=== PATIENT | female | born 1975 | race Asian ===

== ENCOUNTER 2019-06-07 01:39 | Emergency (ER) | payer OTHER ==
[~2019-06-07] VITALS: Ht 157.5 cm; Wt 61.4 kg
[2019-06-07 02:24] LABS: CALCIUM 8.4 mg/dL (8.5-10.1); CARBON DIOXIDE 25.1 mmol/L (21-32); CHLORIDE SERUM 99 mmol/L (98-107); CREATININE SERUM 0.8 mg/dL (0.6-1.0); GFR1 > 60 mL/min; GLUCOSE SERUM 174 mg/dL (74-106); POTASSIUM SERUM 3.7 mmol/L (3.5-5.1); SODIUM SERUM 136 mmol/L (136-145)
[2019-06-07 02:28] LABS: ALKALINE PHOSPHATASE 80 U/L (46-116); ALT/SGPT 9 U/L (14-59); AST/SGOT 6 U/L (15-37); BILIRUBIN TOTAL 0.83 mg/dL (0.20-1.00); LIPASE 45 IU/L (73-393); TOTAL PROTEIN, SERUM 8.2 g/dL (6.4-8.2)
[2019-06-07 02:29] LABS: ALBUMIN 3.1 g/dL (3.4-5.0)
[2019-06-07 02:59] LABS: PLATELET COUNT 414 x10^3mcL (130-400); RED CELL DISTRIBUTION WIDTH 16.2 % (11.5-14.5)
[2019-06-07 03:11] LABS: BAND NEUTROPHIL 4 % (0-10); MONOCYTE 3 % (0-7); SEGMENTED NEUTROPHILS 86 % (37-75)
[2019-06-07 03:12] LABS: PLATELET MORPHOLOGY PLATELETS NORMAL; ovalocyte/elliptocyte 2+; rbc morphology (normal/abnorm) ABNORMAL (NORMAL); tear drop cell (dacryocyte) 1+
[2019-06-07 08:45] VITALS: BP 117/79
== END 2019-06-07 08:45 | disposition home or self-care (01) ==
LOC: ED 01:39
DX: T62.8X1A Toxic effect of other specified noxious substances eaten as food, accidental (unintentional), initial encounter (principal); R11.2 Nausea with vomiting, unspecified; N83.202 Unspecified ovarian cyst, left side; E11.9 Type 2 diabetes mellitus without complications; I10 Essential (primary) hypertension; E78.00 Pure hypercholesterolemia, unspecified; Y92.89 Other specified places as the place of occurrence of the external cause
CPT/HCPCS: C9113; J1885; J2405; J3010; J3475; J7030

== ENCOUNTER 2020-08-22 17:59 | Inpatient (IN) | payer OTHER ==
[~2020-08-22] VITALS: Ht 157.5 cm; Wt 58.7 kg
[2020-08-22 21:23] LABS: CALCIUM 8.9 mg/dL (8.5-10.1); CARBON DIOXIDE 36.1 mmol/L (21-32); CHLORIDE SERUM 89 mmol/L (98-107); CREATININE SERUM 0.5 mg/dL (0.6-1.0); GFR1 > 60 mL/min; GLUCOSE SERUM 133 mg/dL (74-106); POTASSIUM SERUM 3.3 mmol/L (3.5-5.1); SODIUM SERUM 129 mmol/L (136-145)
[2020-08-22 21:27] LABS: BASOPHIL % 0 % (0-2); RED CELL DISTRIBUTION WIDTH 29.1 % (11.5-14.5)
[2020-08-22 21:28] LABS: ALKALINE PHOSPHATASE 90 U/L (46-116); ALT/SGPT 16 U/L (14-59); AST/SGOT 37 U/L (15-37); BILIRUBIN TOTAL 0.4 mg/dL (0.20-1.00); TOTAL PROTEIN, SERUM 7.9 g/dL (6.4-8.2)
[2020-08-22 21:30] LABS: ALBUMIN 2.9 g/dL (3.4-5.0)
[2020-08-22 21:41] LABS: rbc morphology (normal/abnorm) ABNORMAL (NORMAL)
[2020-08-22 21:42] LABS: ovalocyte/elliptocyte 1+; target cell (codocyte) 1+; tear drop cell (dacryocyte) 1+
[2020-08-22 21:43] LABS: PLATELET COUNT 618 x10^3mcL (130-400)
[2020-08-23] MEDS ORDERED: MORGIDOX 2X100100 MG PO (01:09)
[2020-08-23] MEDS ORDERED: LEVAQUIN500 M1 PO (01:09)
[2020-08-23] MEDS ORDERED: OXYCONTIN10 M1 PO (01:10)
[2020-08-23] MEDS ORDERED: PERCOCET1 TA5 PO (01:11)
[2020-08-23] MEDS ORDERED: DECADRON4 MG PO (01:12)
[2020-08-23] MEDS ORDERED: LIPITOR10 MG PO (01:12)
[2020-08-23] MEDS ORDERED: FEOSOL65 M1 PO (01:13)
[2020-08-23] MEDS ORDERED: PEPCID AC20 M2 PO (01:13)
[2020-08-23] MEDS ORDERED: FORTAMET500 M1 PO (01:13)
[2020-08-23] MEDS ORDERED: ZOFRAN8 MG PO (01:14)
[2020-08-23] MEDS ORDERED: OXYCONTIN20 M1 PO (01:15)
[2020-08-23 06:02] LABS: ALKALINE PHOSPHATASE 88 U/L (46-116); ALT/SGPT 20 U/L (14-59); AST/SGOT 39 U/L (15-37); BILIRUBIN TOTAL 0.38 mg/dL (0.20-1.00); CALCIUM 8.6 mg/dL (8.5-10.1); CARBON DIOXIDE 35.1 mmol/L (21-32); CHLORIDE SERUM 89 mmol/L (98-107); CHOLESTEROL 168 mg/dL (<200); CREATININE SERUM 0.5 mg/dL (0.6-1.0); GFR1 > 60 mL/min; GLUCOSE SERUM 129 mg/dL (74-106); PHOSPHOROUS 4.6 mg/dL (2.5-4.9); POTASSIUM SERUM 4.2 mmol/L (3.5-5.1); SODIUM SERUM 131 mmol/L (136-145); TOTAL PROTEIN, SERUM 7.9 g/dL (6.4-8.2); TRIGLYCERIDES 120 mg/dL (<150)
[2020-08-23 06:27] LABS: ALBUMIN 2.8 g/dL (3.4-5.0); CHOLESTEROL/HDL RATIO 2.6; HDL CHOLESTEROL 65 mg/dL (40-60)
[2020-08-23 10:01] VITALS: BP 115/77
[2020-08-23 13:37] VITALS: Ht 157.5 cm; Wt 58.7 kg
[2020-08-23 18:43] VITALS: BP 130/71
[2020-08-23 20:46] VITALS: BP 143/89
[2020-08-24] VITALS (8 sets, daily range): BP systolic 130–151; BP diastolic 53–82
[2020-08-24 07:25] LABS: ALKALINE PHOSPHATASE 86 U/L (46-116); ALT/SGPT 16 U/L (14-59); AST/SGOT 40 U/L (15-37); BILIRUBIN TOTAL 0.4 mg/dL (0.20-1.00); CARBON DIOXIDE 35.4 mmol/L (21-32); CHLORIDE SERUM 92 mmol/L (98-107); CREATININE SERUM 0.6 mg/dL (0.6-1.0); GFR1 > 60 mL/min; GLUCOSE SERUM 130 mg/dL (74-106); MAGNESIUM 2.1 mg/dL (1.8-2.4); PHOSPHOROUS 4.6 mg/dL (2.5-4.9); SODIUM SERUM 133 mmol/L (136-145); TOTAL PROTEIN, SERUM 7.8 g/dL (6.4-8.2)
[2020-08-24 07:27] LABS: ALBUMIN 2.9 g/dL (3.4-5.0)
== END 2020-08-24 20:27 | disposition expired | DRG 597 ==
LOC: ED 17:59 → DU 22:07
PROVIDERS: Emergency Medicine; Radiology Diagnostic Radiology; ADMIT Hospitalist; ATTEND Hospitalist
PROC: 0W993ZZ Drainage of Right Pleural Cavity, Percutaneous Approach (ICD-10-PCS; principal; 2020-08-24 09:00)
DX: C50.912 Malignant neoplasm of unspecified site of left female breast (principal); J96.21 Acute and chronic respiratory failure with hypoxia; E43 Unspecified severe protein-calorie malnutrition; J91.0 Malignant pleural effusion; E11.9 Type 2 diabetes mellitus without complications; D63.8 Anemia in other chronic diseases classified elsewhere; C50.911 Malignant neoplasm of unspecified site of right female breast; I10 Essential (primary) hypertension; Z20.828 Contact with and (suspected) exposure to other viral communicable diseases; Z88.0 Allergy status to penicillin; Z88.8 Allergy status to other drugs, medicaments and biological substances; Z68.23 Body mass index [BMI] 23.0-23.9, adult
CPT/HCPCS: 32555; 32557; 83880; 85378; G0378; J1170; J1644; J2001; J2250; J2270; J2405; J3010; J7030; J7040; Q9967